=== PATIENT | male | born 1980 | race African-American/Black ===

== ENCOUNTER 2016-09-03 09:47 | Emergency (ER) | payer SELFPAY ==
[2016-09-03 10:53] LABS: BASOPHILS 0 % (0-2); EOSINOPHILS 1.9 % (0-7); HEMATOCRIT 43.9 % (42.0-54.0); HEMOGLOBIN 14.6 g/dL (13.5-17.5); LYMPHOCYTES 22.5 % (15-50); MCH 30.5 pg (26.0-34.0); MCHC 33.3 g/dL (31.0-37.0); MCV 91.6 fL (80.0-100.0); MEAN PLATELET VOLUME 10.9 fL (7.4-10.4); MONOCYTES 6.8 % (2-11); NEUTROPHILS 68.8 % (40-80); PLATELET COUNT 244 10x3/uL (130-400); RBC 4.79 10x6/uL (4.20-6.10); WBC 8.9 10x3/uL (4.8-10.8)
[2016-09-03 11:06] LABS: ANION GAP 7.6 mmol/L (8-16); BILIRUBIN - TOTAL 0.56 mg/dL (0.2-1.3); CALCIUM 9.2 mg/dL (8.5-10.1); CARBON DIOXIDE 31.4 mmol/L (21.0-32.0); CREATININE - SERUM 1.2 mg/dL (0.6-1.3); PROTEIN - SERUM 7.7 g/dL (6.4-8.2)
[2016-09-03 11:57] LABS: APPEARANCE CLEAR (CLEAR); BILIRUBIN NEGATIVE (NEGATIVE); COLOR YELLOW (YELLOW); GLUCOSE NEGATIVE (NEGATIVE); KETONE NEGATIVE (NEGATIVE); LEUKOCYTE ESTERASE NEGATIVE (NEGATIVE); NITRITE NEGATIVE (NEGATIVE); PROTEIN NEGATIVE (NEGATIVE); SPECIFIC GRAVITY 1.015 (1.005-1.020); UROBILINOGEN NORMAL (NORMAL)
== END 2016-09-03 14:49 | disposition home or self-care (01) ==
LOC: D.ER 09:47
PROVIDERS: Emergency Medicine
DX: K59.00 Constipation, unspecified (principal); K56.7 Ileus, unspecified

== ENCOUNTER → 2017-04-03 13:17 | Outpatient (CLI) | payer OTHER | END | disposition home or self-care (01) | LOC: D.RAD 03-29 10:19 → D.MRI 03-29 11:30 → D.RAD 13:17 | DX: M25.511 Pain in right shoulder (principal) ==

== ENCOUNTER 2017-07-24 07:26 | Day surgery (SDC) | payer OTHER ==
[2017-07-21 10:53] LABS: HEMATOCRIT 42.4 % (42.0-54.0); HEMOGLOBIN 14.2 g/dL (13.5-17.5); MCH 31.2 pg (26.0-34.0); MCHC 33.5 g/dL (31.0-37.0); MCV 93.2 fL (80.0-100.0); MEAN PLATELET VOLUME 10.6 fL (7.4-10.4); RBC 4.55 10x6/uL (4.20-6.10); RDW 13.5 % (11.5-14.5); WBC 7.4 10x3/uL (4.8-10.8)
[~2017-07-24] VITALS: Ht 177.8 cm; Wt 123.4 kg
--- NOTE | ~2017-07-24 | OP ---
PATIENT NAME: JENN VAUGHAN MEDICAL RECORD: [id number] :78 LOCATION:[facility] ADMISSION DATE: SURGEON: JARETT BACA MD DATE OF OPERATION: 07/24/2017 PREOPERATIVE DIAGNOSIS: Impingement syndrome of the right shoulder. POSTOPERATIVE DIAGNOSIS: Impingement syndrome of the right shoulder. PROCEDURES: 1. Right shoulder distal clavicle excision -- 1 cm done through separate excision arthroscopically. 2. Subacromial decompression, acromioplasty and bursectomy. SURGEON: Jarett Baca MD ANESTHESIA: General. INTRAOPERATIVE COMPLICATIONS: None. SUMMARY OF PATHOLOGIC FINDINGS: The patient had substantial excoriated changes of the superior aspect of the rotator cuff with no full thickness tearing either on the articular surface or the subacromial surface. 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 Some biceps tendonitis was noted, but not enough in my opinion to do a biceps tenodesis. OPERATIVE SUMMARY IN DETAIL: After obtaining the appropriate preoperative orthopedic surgery consent as well as anesthetic consultation, evaluation and clearance, the patient was brought to the operating room and placed on the operating table in supine position. After general laryngeal mask airway was administered, the patient was placed in the left lateral decubitus position. All pressure points well padded to include down leg peroneal pad as well as axillary roll. The patient was held firmly to the operating table using the vacuum pack suction system. Right upper extremity and shoulder were prepped and draped in routine sterile fashion. Arm was held in an Arthrex traction boom at 30 degrees of forward flexion, 30 degrees of abduction, 10 pounds of traction laterally. Arthroscopy was established at the glenohumeral joint from a posterior portal. Anterior portal was established through the anterior safe interval. Diagnostic arthroscopy revealed the patient to have the above findings. Biceps tendinitis, no undersurface rotator cuff tearing, and very good medial joint as well as the labrum intact. Arthroscopy was established in the subacromial space. [place]erstrand tissue ablation system was utilized to denude the undersurface of the acromion of all soft tissue elements and release the coracoacromial ligament. A 5-0 barrel bur was used to perform acromioplasty at the level of acromioclavicular joint and through a separate anterior portal under arthroscopic visualization, distal clavicle was excised for 1 cm. At this point, a large resector was utilized to remove all bursa and carefully evaluate the rotator cuff that had no full-thickness tear at any point. Having completed this, arthroscopy portals were closed in routine interrupted fashion using 4-0 Prolene. Sterile dressings were applied. The patient was awakened, taken to recovery room in stable condition. All final needle and sponge counts were correct. OPERATIVE REPORT [id number] JENN VAUGHAN TRANSINT:[id number] Voice Confirmation ID: [id number] DOCUMENT ID: [id number] PHUONG AMARO, JARETT DUBOIS at 1410 CC: [id number] DICTATION DATE: 07/24/17 1028 ACCOUNT MANAGER EDUCATION: 07/24/17 1216 [facility] [address] [place] [address]
[2017-07-24 07:10] VITALS: Ht 177.8 cm; Wt 123.4 kg
[~2017-07-24 07:26] MED LIST: LOPID600 MG PO; PRINIVIL20 MG; PRINIVIL20 MG PO
[2017-07-24] MEDS ORDERED: HYDROCODONE-APA1 TAB PO (10:23)
== END 2017-07-24 12:20 | disposition home or self-care (01) ==
LOC: D.OPS 07:26 → D.PAN 08:45 → D.OPS 08:45 → D.PAN 08:50 → D.OPS 10:00
PROVIDERS: Anesthesiology
DX: M75.41 Impingement syndrome of right shoulder (principal); M94.211 Chondromalacia, right shoulder; M75.21 Bicipital tendinitis, right shoulder; Z01.812 Encounter for preprocedural laboratory examination

== ENCOUNTER → 2018-06-20 10:31 | Outpatient (CLI) | payer OTHER ==
[2017-07-24 07:10] VITALS: BMI 39.1
[~2018-06-20 10:31] MED LIST changes: +HYDROCODONE-APA1 TAB PO
== END | disposition home or self-care (01) ==
LOC: D.HCCARDIO 10:31
PROVIDERS: ATTEND Internal Medicine Interventional Cardiology
DX: R07.9 Chest pain, unspecified (principal)

== ENCOUNTER → 2019-06-21 07:58 | Outpatient (CLI) | payer OTHER ==
[2017-07-24 07:10] VITALS: BMI 39.1
== END | disposition home or self-care (01) ==
LOC: D.MRI 07:58
PROVIDERS: ATTEND Clinical Nurse Specialist Family Health
DX: M25.512 Pain in left shoulder (principal)

== ENCOUNTER 2019-09-23 05:38 | Day surgery (SDC) | payer OTHER ==
[2019-09-20 10:45] LABS: HEMATOCRIT 39.9 % (42.0-54.0); HEMOGLOBIN 13.1 g/dL (13.5-17.5); MCH 30.5 pg (26.0-34.0); MCHC 32.8 g/dL (31.0-37.0); MCV 92.8 fL (80.0-100.0); MEAN PLATELET VOLUME 10.3 fL (7.4-10.4); RBC 4.3 10x6/uL (4.20-6.10); RDW 13.6 % (11.5-14.5)
[~2019-09-23] VITALS: Ht 177.8 cm; Wt 117.9 kg
[~2019-09-23 05:38] MED LIST changes: +TRICOR145 MG PO
[2019-09-23 06:09] VITALS: Ht 177.8 cm; Wt 117.9 kg
[2019-09-23] MEDS ORDERED: HYDROCODON-ACE1 EA10 PO (08:27)
--- NOTE | 2019-09-23 09:59 | NUR ---
0985 PT STATES PAIN LEVEL IS A 9 OUT OF 10. NORCO PO GIVEN TO PT
--- NOTE | 2019-09-23 10:52 | NUR ---
1018 DR BLOCK CALLED REGARDING PT'S PAIN LEVEL THAT HAS NOT GIVEN MUCH RELIEF AFTER NORCO. DR BLOCK ASKED THAT PT'S SHOULDER BLADE BE MASSAGED. 1024 MASSAGED PT'S BACK AROUND SHOULDER BLADE AND PT STATES THAT PAIN LEVEL HAS DROPPED TO A 3-4 OUT OF A 10. PT STATES HE FEELS "MUCH BETTER" AND THE "THROBBING" SENSATION HAS DIMINISHED. 1030 IV DC'D. CATHETER TIP INTACT. NO BLEEDING AT SITE AND BANDAID APPLIED. PT AND HIS BOTH VOICE UNDERSTANDING OF DISCHARGE INSTRUCTIONS.
--- NOTE | 2019-09-25 12:11 | OP ---
PATIENT NAME: JENN VAUGHAN MEDICAL RECORD: [id number] :78 LOCATION:[facility] ADMISSION DATE: SURGEON: JARETT BACA MD DATE OF OPERATION: 09/23/2019 PREOPERATIVE DIAGNOSES: Impingement syndrome of the left shoulder. POSTOPERATIVE DIAGNOSES: Impingement syndrome of the left shoulder. PROCEDURES: 1. Arthroscopic distal clavicle excision done through separate incision - 1 cm. 2. Arthroscopic subacromial decompression with acromioplasty and bursectomy. SURGEON: Jarett Baca MD ANESTHESIA: General. INTRAOPERATIVE COMPLICATIONS: None. SUMMARY OF PATHOLOGIC FINDINGS: While the patient did have mild biceps tendinitis and labral tearing was noted, the patient did have a downward sloping acromion with excoriation of the subacromial spur with the coracoacromial ligament. A large osteophyte was emanating from the inferior aspect of the distal clavicle consistent with preoperative diagnoses. OPERATIVE SUMMARY IN DETAIL: After obtaining the appropriate preoperative orthopedic surgery consent as well as anesthetic consultation, evaluation and clearance operating room and placed on the operating the operating table in supine position. After general laryngeal mask airway was administered, the patient was placed in a right lateral decubitus position. All pressure points were well padded to include down leg peroneal pad as well as axillary roll. The patient was held firmly to the operating table using the vacuum pack suction system. Left upper extremity and shoulder were then prepped and draped in routine sterile fashion. Also, the Arthrex traction boom at 30 degrees of forward approximately 3 degrees of abduction, 10 pounds of traction laterally. Arthroscopy was established in the glenohumeral joint from the posterior portal, anterior portal was established in the anterior safe interval. Diagnostic arthroscopy did show the patient to have biceps tendinitis; however, intraarticularly, the patient's shoulder was relatively pristine. Attention was then turned to the subacromial space. While on subacromial space, a slow portal was created through which the [place]roft tissue ablation system was utilized to denude the undersurface of the acromion of all soft tissue elements and 5-0 barrel bur was then used to perform acromioplasty at the level of acromioclavicular joint. Then, through a separate anterior arthroscopic portal, distal clavicle was excised for 1 cm. All bursa was taken down. The patient did have some tendinopathic changes of the rotator cuff, but no tearing was noted. Having completed this, arthroscopy portals were closed in routine interrupted fashion using 4-0 Prolene. Sterile dressings were applied. The patient was awakened and taken to recovery room in stable condition. All final needle and sponge counts were recovered. TRANSINT:[id number] Voice Confirmation ID: [id number] DOCUMENT ID: [id number] OPERATIVE REPORT [id number] JENN VAUGHAN MD, JARETT DUBOIS at 1211 CC: [id number] DICTATION DATE: 09/23/19 0830 ELECTRO MECHANICAL ENGINEER: 09/23/[address] [facility] 09/23/19 [facility] [address] [place] [address]
== END 2019-09-23 10:42 | disposition home or self-care (01) ==
LOC: D.OPS 05:38
PROVIDERS: Anesthesiology; ATTEND Orthopaedic Surgery
DX: M75.42 Impingement syndrome of left shoulder (principal); M25.512 Pain in left shoulder; M25.571 Pain in right ankle and joints of right foot; M76.61 Achilles tendinitis, right leg